=== PATIENT | male | born 1990 | race Caucasian/White ===

== ENCOUNTER 2024-09-28 04:58 | Emergency (ER) | payer MEDICAID ==
[~2024-09-28] VITALS: Ht 177.8 cm; Wt 80.0 kg
[~2024-09-28 04:58] MED LIST: CONSTULOSE10 GM/15 M PO; METHOCARBAMOL500 MG PO; NAPROXEN500 MG PO
[2024-09-28] MEDS ORDERED: SODIUM CHLORIDE 0.9% 1,000 ML IV ONE (05:35)
[2024-09-28] MEDS ORDERED: ASPIRIN 81 MG/TAB PO ONE (05:35)
[2024-09-28] MEDS ORDERED: LORazepam 2 MG/ML IV ONE (05:35)
[2024-09-28] MEDS ORDERED: diazePAM 10 MG/2 ML VIAL IV ONE (05:55)
[2024-09-28 06:03] VITALS: BP 114/65
[2024-09-28 06:11] LABS: BASO% 0.5 % (0-3); EOS% 3.3 % (0-8); HEMATOCRIT 46.2 % (39.0-50.0); HEMOGLOBIN 14.8 g/dl (14.0-18.0); IMMATURE GRANULOCYTES 0.2 % (0.0-5.0); LYMPH% 21.6 % (15-41); MEAN CELL VOLUME 90.6 fL CALC (80.0-100.0); MONO% 7.9 % (2-13); NEUT# 4.21 thou/uL (1.82-7.42); NEUT% 66.5 % (42-76); RED BLOOD COUNT 5.1 mill/uL (4.70-6.10); RED CELL DISTRI WIDTH 12.4 % (11.5-15.5)
[2024-09-28 06:15] LABS: URINE BILIRUBIN - DIPSTICK Negative (NEGATIVE); URINE BLOOD DIPSTICK Negative (NEGATIVE); URINE COLOR Yellow; URINE GLUCOSE - DIPSTICK Negative (NEGATIVE); URINE KETONE Negative (NEGATIVE); URINE LEUK ESTERASE Negative (NEGATIVE); URINE NITRITE - DIPSTICK Negative (Negative); URINE PROTEIN - DIPSTICK Negative (NEG-TRACE); URINE SPECIFIC GRAVITY 1.025; URINE UROBILINOGEN - DIPSTICK 0.2 E.U./dL (0.2)
[2024-09-28 06:20] LABS: ALBUMIN 4.1 g/dL (3.2-5.0); ALKALINE PHOSPHATASE 60 u/l (38-126); ANION GAP 9 (6-22 (CALC)); BILIRUBIN, TOTAL 0.6 mg/dL (0.2-1.3); BUN 15 mg/dL (9-20); BUN/CREATININE RATIO 18 (12-20 (CALC)); CARBON DIOXIDE 28 mmol/l (22-30); CHLORIDE 105 mmol/l (95-108); CREATININE 0.8 mg/dL (0.7-1.3); ESTIMATED GFR 121 ML/MIN (>=90 (CALC)); ETHYL ALCOHOL 0 mg/dl (0-30); MAGNESIUM 2.3 mg/dL (1.6-2.3); POTASSIUM 4.1 mmol/l (3.5-5.1); SGOT/AST 27 u/l (17-59); SODIUM 138 mmol/l (137-146); TOTAL PROTEIN 7.2 g/dL (6.3-8.2)
[2024-09-28 06:30] VITALS: BP 119/79
[2024-09-28 06:32] LABS: INTERNATIONAL NORMALIZED RATIO 0.9 RATIO (0.7-1.3)
[2024-09-28 06:49] LABS: D-DIMER < 0.19 mg/L (0.19-0.60)
[2024-09-28] MEDS ORDERED: HYDROXYZ HCL25 MG PO (06:54)
[2024-09-28] MEDS ORDERED: LEXAPRO10 MG PO (06:54)
[2024-09-28 07:00] VITALS: BP 123/68
[2024-09-28 07:26] VITALS: BP 123/68
== END 2024-09-28 07:31 | disposition home or self-care (01) ==
LOC: ED 04:58
PROVIDERS: Family Medicine
DX: R07.89 Other chest pain (principal); F41.9 Anxiety disorder, unspecified; F17.210 Nicotine dependence, cigarettes, uncomplicated
CPT/HCPCS: J3360

== ENCOUNTER 2024-10-31 14:29 | Emergency (ER) | payer OTHER, MEDICAID ==
[2024-10-31] VITALS (24 sets, daily range): BP systolic 105–127; BP diastolic 65–84
[~2024-10-31] VITALS: Ht 177.8 cm; Wt 81.0 kg
[~2024-10-31 14:29] MED LIST changes: +HYDROXYZ HCL25 MG PO; +LEXAPRO10 MG PO
[2024-10-31] MEDS ORDERED: SODIUM CHLORIDE 0.9% 1,000 ML IV STA (15:18)
[2024-10-31] MEDS ORDERED: Pantoprazole Sodium 40 MG VIAL (Protonix) IV STA (15:18)
[2024-10-31] MEDS ORDERED: ONDANSETRON HCl 4 MG/2 ML SDV IV STA (15:18)
[2024-10-31] MEDS ORDERED: MORPHINE SULFATE 4 MG/ML VIAL IV STA (15:18)
[2024-10-31] MEDS ORDERED: DIATRIZOATE MEGLUMINE & SODIUM 30 ML/BTL PO ONE (15:20)
[2024-10-31 15:55] LABS: BASO% 0.5 % (0-3); EOS% 0.2 % (0-8); HEMATOCRIT 49.4 % (39.0-50.0); HEMOGLOBIN 16.5 g/dl (14.0-18.0); IMMATURE GRANULOCYTES 0.2 % (0.0-5.0); MEAN CELL VOLUME 87.7 fL CALC (80.0-100.0); MEAN CORPUSCULAR HGB 29.3 pG CALC (26.0-32.0); MEAN CORPUSCULAR HGB CONC 33.4 g/dL CAL (32.0-36.0); MONO% 4.8 % (2-13); NEUT# 7.27 thou/uL (1.82-7.42); NEUT% 85.3 % (42-76); RED BLOOD COUNT 5.63 mill/uL (4.70-6.10); RED CELL DISTRI WIDTH 12.4 % (11.5-15.5)
[2024-10-31 16:17] LABS: ALBUMIN 4.9 g/dL (3.2-5.0); ALKALINE PHOSPHATASE 77 u/l (38-126); ANION GAP 14 (6-22 (CALC)); BILIRUBIN, TOTAL 0.8 mg/dL (0.2-1.3); BUN 15 mg/dL (9-20); BUN/CREATININE RATIO 17 (12-20 (CALC)); CARBON DIOXIDE 23 mmol/l (22-30); CHLORIDE 106 mmol/l (95-108); CREATININE 0.8 mg/dL (0.7-1.3); ESTIMATED GFR 121 ML/MIN (>=90 (CALC)); LIPASE 58 u/l (23-300); POTASSIUM 3.9 mmol/l (3.5-5.1); SGOT/AST 36 u/l (17-59); SODIUM 139 mmol/l (137-146); TOTAL PROTEIN 8.6 g/dL (6.3-8.2)
[2024-10-31] MEDS ORDERED: MORPHINE SULFATE 4 MG/ML VIAL IV ONE ×2 (16:25→19:45)
[2024-10-31] MEDS ORDERED: ONDANSETRON HCl 4 MG/2 ML SDV IV ONE (19:25)
[2024-10-31 20:56] LABS: URINE BLOOD DIPSTICK Negative (NEGATIVE); URINE GLUCOSE - DIPSTICK Negative (NEGATIVE); URINE KETONE 40 mg/dL (NEGATIVE); URINE LEUK ESTERASE Negative (NEGATIVE); URINE NITRITE - DIPSTICK Negative (Negative); URINE PROTEIN - DIPSTICK Trace mg/dL (NEG-TRACE); URINE SPECIFIC GRAVITY 1.015; URINE UROBILINOGEN - DIPSTICK 0.2 E.U./dL (0.2)
[2024-10-31 20:58] LABS: URINE COLOR Yellow
[2024-10-31] MEDS ORDERED: DIFLUCAN150 MG PO (22:09)
[2024-10-31] MEDS ORDERED: ZOFRAN4 MG/TAB PO (22:09)
[2024-10-31] MEDS ORDERED: PROTONIX40 MG PO (22:09)
== END 2024-10-31 22:15 | disposition home or self-care (01) ==
LOC: ED 14:29
PROVIDERS: Nurse Practitioner Family
DX: K29.70 Gastritis, unspecified, without bleeding (principal); F41.9 Anxiety disorder, unspecified; F17.210 Nicotine dependence, cigarettes, uncomplicated; Z20.822 Contact with and (suspected) exposure to COVID-19
CPT/HCPCS: J2405; J2470; Q9967